=== PATIENT | female | born 1955 | race Caucasian/White ===

== ENCOUNTER 2024-08-02 07:16 | Day surgery (SDC) | payer MEDICARE ==
[2024-07-31 13:50] VITALS: BMI 21.2
[2024-08-02] MEDS ORDERED: PROPOFOL 20 ML ONE (08:58)
[2024-08-02] MEDS ORDERED: Fentanyl 250 MCG/5 ML VIAL ONE (08:58)
[2024-08-02] MEDS ORDERED: Dexamethasone 4 mg/ml Vial ONE (09:01)
[2024-08-02] MEDS ORDERED: Ondansetron PF 4 MG/2 ML Vial ONE (09:01)
[2024-08-02] MEDS ORDERED: Lidocaine 1% PF 5 ML VIAL ONE (09:01)
[2024-08-02] MEDS ORDERED: Lidocaine 1% (PF) 30 ML VIAL ONE (09:03)
[2024-08-02] MEDS ORDERED: EPINEPHrine 1 MG/ML VIAL ONE (09:03)
[2024-08-02] MEDS ORDERED: ePHEDrine Sulfate 50 MG/10 ML VIAL ONE (09:25)
[2024-08-02] MEDS ORDERED: PHENYLEPHRINE-NS 100 MCG/ML 10 ML SYRINGE ONE (09:26)
[2024-08-02] MEDS ORDERED: fentaNYL 50 mcg/mL 1 mL Vial ONE ×2 (10:34→10:46)
[2024-08-02] MEDS ORDERED: HYDROcodone/Acetaminophen 5/325 mg Tablet ONE (11:16)
== END 2024-08-02 11:45 | disposition home or self-care (01) ==
LOC: CSHSDC 07:16
PROVIDERS: ATTEND Otolaryngology Plastic Surgery within the Head & Neck
PROC: 0GB Endocrine System, Excision (ICD-10-PCS; principal; 2024-08-02)
PROC: 0GB Endocrine System, Excision (ICD-10-PCS; 2024-08-02)
DX: E05.20 Thyrotoxicosis with toxic multinodular goiter without thyrotoxic crisis or storm (principal); M06.9 Rheumatoid arthritis, unspecified; F32.A Depression, unspecified; K21.9 Gastro-esophageal reflux disease without esophagitis; E07.9 Disorder of thyroid, unspecified; F17.200 Nicotine dependence, unspecified, uncomplicated; Z79.899 Other long term (current) drug therapy
CPT/HCPCS: 60220; C1889; J0171; J1100; J2405; J2704; J3010 ×2; 88307